=== PATIENT | female | born 1975 | race Two or more races ===

== ENCOUNTER 2018-02-07 19:21 | Emergency (ER) | payer MEDICAID ==
[~2018-02-07] VITALS: Ht 162.6 cm; Wt 52.6 kg
[2018-02-07] MEDS ORDERED: IV NORMAL SALINE 1000 ML BAG IV ONE (20:15)
[2018-02-07] MEDS ORDERED: MORPHINE SULFATE 2 MG/1 ML DISP.SYRIN IV ONE (20:15)
[2018-02-07] MEDS ORDERED: ONDANSETRON IV *ER 4 MG/2 ML VIAL IV ONE (20:15)
[2018-02-07] MEDS ORDERED: ONDANSETRON 4 MG/2 ML VIAL ONE (20:34)
[2018-02-07] MEDS ORDERED: MORPHINE SULFATE 4 MG/1 ML DISP.SYRIN ONE (20:34)
[2018-02-07 20:39] LABS: BASOPHILS % (AUTO) 0.9 % (0.0-2.0); EOSINOPHILS # (AUTO) 0.2 K/uL (0.0-0.7); EOSINOPHILS % (AUTO) 3.8 % (0.0-7.0); HEMATOCRIT 35.1 % (31.2-41.9); LYMPHOCYTES # (AUTO) 2.2 K/uL (20.0-40.0); LYMPHOCYTES % (AUTO) 39.1 % (20.5-51.5); MEAN CORPUSCULAR HEMOGLOBIN 31.7 uug (24.7-32.8); MEAN CORPUSCULAR HGB CONC 34 g/dL (32.3-35.6); MEAN CORPUSCULAR VOLUME 92.4 fL (75.5-95.3); MONOCYTES # (AUTO) 0.5 K/uL (2.0-10.0); MONOCYTES % (AUTO) 9.5 % (0.0-11.0); NEUTROPHILS # (AUTO) 2.6 K/uL (1.8-8.9); NEUTROPHILS % (AUTO) 46.7 % (38.5-71.5); PLATELET COUNT (AUTO) 288 K/uL (179-408); RED BLOOD CELL COUNT(AUTO) 3.79 MIL/uL (3.63-4.92); WHITE BLOOD COUNT (AUTO) 5.6 K/uL (3.8-11.8)
[2018-02-07 20:46] LABS: POTASSIUM 4.2 mmol/L (3.5-5.1)
[2018-02-07 20:47] LABS: CREATININE 0.9 mg/dL (0.6-1.3)
[2018-02-07 20:52] LABS: BILIRUBIN,TOTAL 0.2 mg/dL (0.2-1.0); TOTAL PROTEIN, SERUM 6.2 g/dL (6.4-8.2)
[2018-02-07 21:00] LABS: *URINE HCG, QUAL NEGATIVE (NEGATIVE)
--- NOTE | 2018-02-07 21:08 | NUR ---
SHOE STAINER AT BEDSIDE.
[2018-02-07] MEDS ORDERED: IV NORMAL SALINE 250 ML IV ONE (21:35)
[2018-02-07] MEDS ORDERED: NORMAL SALINE FLUSH 10 ML DISP.SYRIN ONE (21:35)
[2018-02-07] MEDS ORDERED: SWABABLE VALVE TRANSFER SET EA MC ONE (21:35)
[2018-02-07] MEDS ORDERED: IOHEXOL 350 100 ML INFUS..BTL ONE (21:35)
--- NOTE | 2018-02-07 22:09 | NUR ---
Pt went down to radiology dept for CT scan.
[2018-02-07] MEDS ORDERED: KETOROLAC TROMETHAMINE 30 MG INJ ONE (23:15)
[2018-02-07] MEDS ORDERED: KETOROLAC TROMETHAMINE 30 MG INJ IVP ONE (23:15)
--- NOTE | 2018-02-08 00:09 | NUR ---
Patient discharged to home in stable conditon. Written and verbal after care instructions given. Patient verbalizes understanding of instructions. Pt ambulated out of ER in steady gait accompanied by friend who will drive home. All belongings with pt. VSS. NAD noted.
--- NOTE | 2018-02-08 00:09 | NUR ---
IV removed. Catheter intact and site benign. Pressure and 4x4 gauze applied to site. No bleeding noted.
[2018-02-08 00:14] VITALS: BP 105/68
== END 2018-02-08 00:14 | disposition home or self-care (01) ==
LOC: ER 19:24
DX: G89.18 Other acute postprocedural pain (principal); N64.4 Mastodynia; Z88.2 Allergy status to sulfonamides; Z88.8 Allergy status to other drugs, medicaments and biological substances; Z91.041 Radiographic dye allergy status
CPT/HCPCS: 36415; 70030-TC; 71045; 71275; 76641-TC; 84703; 85025; 85730; 93005; A4663; J1885; J2270; J2405; J3490; J7030; J7050; Q9967

== ENCOUNTER 2018-02-12 14:43 | Inpatient (IN) | payer MEDICAID ==
[~2018-02-12] VITALS: Ht 162.6 cm; Wt 74.8 kg
[2018-02-12 15:22] LABS: BASOPHILS % (AUTO) 0.5 % (0.0-2.0); EOSINOPHILS # (AUTO) 0.2 K/uL (0.0-0.7); EOSINOPHILS % (AUTO) 2.2 % (0.0-7.0); HEMATOCRIT 30.5 % (31.2-41.9); HEMOGLOBIN 10.4 g/dL (10.9-14.3); LYMPHOCYTES # (AUTO) 1.5 K/uL (20.0-40.0); LYMPHOCYTES % (AUTO) 20.8 % (20.5-51.5); MEAN CORPUSCULAR HEMOGLOBIN 31.3 uug (24.7-32.8); MEAN CORPUSCULAR HGB CONC 34 g/dL (32.3-35.6); MEAN CORPUSCULAR VOLUME 91.5 fL (75.5-95.3); MONOCYTES # (AUTO) 0.5 K/uL (2.0-10.0); MONOCYTES % (AUTO) 7.2 % (0.0-11.0); NEUTROPHILS # (AUTO) 5.1 K/uL (1.8-8.9); NEUTROPHILS % (AUTO) 69.3 % (38.5-71.5); PLATELET COUNT (AUTO) 356 K/uL (179-408); RED BLOOD CELL COUNT(AUTO) 3.33 MIL/uL (3.63-4.92); WHITE BLOOD COUNT (AUTO) 7.4 K/uL (3.8-11.8)
[2018-02-12 15:32] LABS: CARBON DIOXIDE 26 mmol/L (21-32); CHLORIDE 106 mmol/L (98-107); CREATININE 0.8 mg/dL (0.6-1.3); GLUCOSE 76 mg/dL (74-106); POTASSIUM 3.8 mmol/L (3.5-5.1); UREA NITROGEN, BLOOD 11 mg/dL (7-18)
[2018-02-12 15:37] LABS: ALANINE AMINOTRANSFERASE 52 U/L (14-59); ALKALINE PHOSPHATASE 111 U/L (50-136); ASPARTATE AMINOTRANSFERASE 29 U/L (15-37); BILIRUBIN,DIRECT < 0.1 mg/dL (0.0-0.2); BILIRUBIN,TOTAL 0.1 mg/dL (0.2-1.0); TOTAL PROTEIN, SERUM 6.7 g/dL (6.4-8.2)
[2018-02-12] MEDS ORDERED: VANCOMYCIN IV 1,000 MG in IV DEXTROSE 5% 250 ML IV ONE (15:45)
--- NOTE | 2018-02-12 15:48 | NUR ---
LEFT A MESSAGE FOR DR. SIMON JEFFREY FOR SURGICAL CONSULT
[2018-02-12] MEDS ORDERED: VANCOMYCIN IV 200 ML ONE (15:53)
--- NOTE | 2018-02-12 16:13 | NUR ---
DR. SIMON JEFFREY TALKING TO DR. MI
[2018-02-12 16:30] LABS: *URINE HCG, QUAL NEGATIVE (NEGATIVE)
--- NOTE | 2018-02-12 16:40 | NUR ---
PT TRANSFERED TO FLOOR IN STABLE CONDITION
[2018-02-12 16:59] VITALS: BP 98/53
[2018-02-12] MEDS ORDERED: ACETAMINOPHEN 325 MG TABLET PO PRN (17:00)
[2018-02-12] MEDS ORDERED: ONDANSETRON 4 MG/2 ML VIAL IV PRN (17:00)
--- NOTE | 2018-02-12 17:22 | NUR ---
42 year old female received from er via [place] to room 223.pt is in stable condition.v/s are stable orient the pt to room and surroundings,call light with in reach
[2018-02-12] MEDS: IV NS 1000 ML 1,000 ML IV PRN (17:30)
[2018-02-12] MEDS: HYDROCODONE/APAP 10-325 MG TABLET PO PRN (18:01)
--- NOTE | 2018-02-12 18:28 | NUR ---
Clinical pharmacy note-Vancomycin dosing per pharmacy Subjective; To start Vancomycin dosing on this patient for suspected infection(possible sepsis). Patient had breast augmentation 2 weeks ago but came to ER due to bilateral breast swelling with severe pain. Objective: BUN 11 Scr 0.8 WBC 7.4 Temp 100.3 Ht 162.56cm Wt 74.843kg Assessment/Plan: Patient had Vancomycin 1 gram in ER today at 1558, will continue Vancomycin 1gram iv every 12hrs(second dose tomorrow at 0400) and draw trough by 4th dose(not ordered yet) for expected trough around 15. Will monitor renal function to adjust the dose if needed. Will follow daily.
--- NOTE | 2018-02-12 19:34 | NUR ---
Pt observed to be sitting up in bed, alert and oriented x 3. No s/s of acute distress noted at this time. Safe environment implemented. Call light within reach.
[2018-02-12] MEDS: ENOXAPARIN SODIUM 40 MG/0.4 ML DISP.SYRIN SQ SCH (20:32)
[2018-02-12 20:33] VITALS: BP 94/54
[2018-02-13] MEDS: HYDROCODONE/APAP 10-325 MG TABLET PO PRN ×2 (03:37→15:54)
[2018-02-13] MEDS: VANCOMYCIN IV 1 G in PREMIXED 0 EACH IV SCH ×2 (03:37→15:42)
--- NOTE | 2018-02-13 03:50 | NUR ---
Pt complaining of pain on upper chest around bilateral breast folds, describing the pain as tightness as she breaths in. Relaxation techniques , pain management and ice pack provided. 2L O2 via NC initiated to alleviate discomfort. Will continue to monitor.
[2018-02-13 04:29] VITALS: BP 103/66
--- NOTE | 2018-02-13 04:50 | NUR ---
Pt states that [place] 10 -325 is ineffective and pain remains to be at a 10/10. MD telephone interviewer notified and no new orders given.
[2018-02-13 05:42] LABS: BASOPHILS % (AUTO) 0.5 % (0.0-2.0); EOSINOPHILS # (AUTO) 0.2 K/uL (0.0-0.7); EOSINOPHILS % (AUTO) 3.4 % (0.0-7.0); HEMATOCRIT 28.3 % (31.2-41.9); HEMOGLOBIN 9.6 g/dL (10.9-14.3); LYMPHOCYTES # (AUTO) 1.3 K/uL (20.0-40.0); LYMPHOCYTES % (AUTO) 24.9 % (20.5-51.5); MEAN CORPUSCULAR HEMOGLOBIN 30.7 uug (24.7-32.8); MEAN CORPUSCULAR HGB CONC 34 g/dL (32.3-35.6); MEAN CORPUSCULAR VOLUME 90.5 fL (75.5-95.3); MONOCYTES # (AUTO) 0.4 K/uL (2.0-10.0); MONOCYTES % (AUTO) 7.7 % (0.0-11.0); NEUTROPHILS # (AUTO) 3.4 K/uL (1.8-8.9); NEUTROPHILS % (AUTO) 63.5 % (38.5-71.5); PLATELET COUNT (AUTO) 319 K/uL (179-408); RED BLOOD CELL COUNT(AUTO) 3.13 MIL/uL (3.63-4.92); WHITE BLOOD COUNT (AUTO) 5.3 K/uL (3.8-11.8)
[2018-02-13 05:57] LABS: CREATININE 0.8 mg/dL (0.6-1.3); MAGNESIUM 1.7 mg/dL (1.8-2.4); PHOSPHOROUS 4.2 mg/dL (2.5-4.9); POTASSIUM 3.5 mmol/L (3.5-5.1)
--- NOTE | 2018-02-13 06:37 | NUR ---
At this time, pt is resting in bed and in no distress. Pt no longer crying from excruciating pain. Safe environment implemented. Call light within reach.
[2018-02-13] MEDS: IV NS 1000 ML 1,000 ML IV PRN ×2 (06:39→17:41)
--- NOTE | 2018-02-13 09:07 | NUR ---
Clinical pharmacy note-Vancomycin dosing per pharmacy Subjective; To continue Vancomycin dosing on this 42 yo female patient for cellulitis Patient had breast augmentation 2 weeks ago in [place] but came to ER due to bilateral breast swelling with severe pain. Objective: BUN 10 Scr 0.8 WBC 5.3 Temp 98.2 Ht 162.56cm Wt 74.843kg Assessment/Plan: Will continue same dose of Vancomycin 1gram IVPB every 12hrs for today. 3rd dose today at 1600) and draw trough by 4th dose (ordered for 02/14 at 0330- RN has been informed to hold 0400am dose if vanco trough level is above 20 mcg/ml. Pharmacy shall review the level in am & adjust the dose if needed. Will follow daily.
[2018-02-13] MEDS ORDERED: MAGNESIUM SULFATE/D5W 100 ML IV SCH (09:30)
[2018-02-13] MEDS: HYDROCODONE/APAP 5-325MG TABLET PO PRN ×2 (10:02→11:05)
--- NOTE | 2018-02-13 10:13 | NUR ---
At this time, pt is resting in bed and in no distress. Safe environment implemented. Call light within reach.
[2018-02-13 11:24] VITALS: BP 101/61
[2018-02-13 15:15] VITALS: BP 90/40
[2018-02-13 19:00] VITALS: BP 93/54
--- NOTE | 2018-02-13 19:20 | NUR ---
RECEIVED PATIENT LYING IN BED. SEVERAL FAMILY MEMBER PRESENT. PATIENT AOX4. IN NO ACUTE DISTRESS. ON O2 AT 3LPM VIA NC. O2 SAT AT 100%. PT COMPLAIN OF PAIN ON CHEST AND ABDOMINAL AREA. WAS SEEN BY Pranay WILLIAMSON AND WILL ORDER NEW PAIN MEDICATION. IV SITE ON LEFT FOREARM INTACT AND PATENT. IVF INFUSING. NEEDS ATTENDED TO AND MET. SAFETY MEASURE INITIATED AND CALL [facility] WITHIN REACH.
[2018-02-13] MEDS ORDERED: MORPHINE SULFATE 2 MG/1 ML DISP.SYRIN IM PRN (20:30)
[2018-02-13] MEDS: CEFEPIME HCL 1 G in IV DEXTROSE 5% 50 ML IV SCH (20:35)
[2018-02-13] MEDS: MORPHINE SULFATE 4 MG/1 ML DISP.SYRIN IM PRN (20:37)
[2018-02-13] MEDS: ENOXAPARIN SODIUM 40 MG/0.4 ML DISP.SYRIN SQ SCH (20:38)
[2018-02-14] MEDS: MORPHINE SULFATE 4 MG/1 ML DISP.SYRIN IM PRN ×2 (02:12→06:40)
[2018-02-14] MEDS: TEMAZEPAM 15 MG CAPSULE PO PRN ×2 (03:30→23:32)
--- NOTE | 2018-02-14 03:30 | NUR ---
PATIENT COMPLAINED OF PAIN ON HER BREAST, STATED MORPHINE DID NOT HELP MUCH. NOTED SITTING AT THE SIDE OF THE BED. INSTRUCTED TO LAY DOWN IN BED TO PREVENT FROM BREAST FROM PULLING DOWN WHICH CAN BE CAUSING MORE PAIN. PATIENT LAYED DOWN. ICE COMPRESS PROVIDED TO BOTH BREAST AREA. PATIENT REQUESTED SLEEPING PILL, INFORMED CHARGE NURSE AND GIVEN.
[2018-02-14 04:00] VITALS: BP 102/55
[2018-02-14] MEDS: IV NS 1000 ML 1,000 ML IV PRN ×2 (04:46→20:50)
--- NOTE | 2018-02-14 04:55 | NUR ---
STILL AWAITING FOR VANCO TROUGH RESULT. CALL LAB X2 SPOKE TO JANET, TO FOLLOW UP RESULT AND STATES STILL RUNNING TEST AT THIS TIME. INSTRUCTED JANET TO CALL THIS NURSE ONCE RESULT IS IN.
[2018-02-14] MEDS: VANCOMYCIN IV 1 G in PREMIXED 0 EACH IV SCH (04:59)
--- NOTE | 2018-02-14 04:59 | NUR ---
VANCO TROUGH RESULT OBTAINED =7.5. VANCO IV GIVEN PER ODER.
--- NOTE | 2018-02-14 06:18 | NUR ---
AOX4. IN NO ACUTE DISTRESS. ON O2 AT 3LPM VIA NC. O2 SAT AT 100%. MORPHINE GIVEN FOR COMPLAIN OF PAIN ON CHEST/BREAST AREA. ICE COMPRESS ALSO PROVIDED TO BREAST AREA. NO REDNESS NOTED. INCISION SITE APPEARS TO BE INTACT. IV SITE ON LEFT FOREARM REMAINS INTACT AND PATENT. IVF INFUSING. NO ADVERSE EFFECT NOTED FROM IV ABX. NEEDS ATTENDED TO AND MET. SAFETY MEASURE MAINTAINED AND CALL [facility] WITHIN REACH.
[2018-02-14] MEDS: HYDROMORPHONE 1 MG/1 ML DISP.SYRIN IV PRN ×2 (07:46→14:09)
[2018-02-14] MEDS: CEFEPIME HCL 1 G in IV DEXTROSE 5% 50 ML IV SCH ×2 (08:35→20:49)
[2018-02-14] MEDS: HYDROCODONE/APAP 5-325MG TABLET PO PRN (11:03)
--- NOTE | 2018-02-14 11:09 | NUR ---
Clinical pharmacy note-Vancomycin dosing per pharmacy Subjective; To continue Vancomycin dosing on this 42 yo female patient for cellulitis Patient had breast augmentation 2 weeks ago in [place] but came to ER due to bilateral breast swelling with severe pain. Objective: BUN 10 (02/13) Scr 0.8 (02/13) WBC 5.3 (02/13) Temp 98.9 Ht 162.56cm Wt 74.843kg Trough today at 0330: 7.5 Assessment/Plan: Based on trough, rescheduled vanco regimen to 1250mg q9hr for new estimated trough of 14.9, first dose today at 1300. Trough ordered before 4th scheduled dose, due tomorrow at 1530. Will check trough tomrorow and adjust as needed. Will follow
[2018-02-14 11:24] VITALS: BP 97/62
[2018-02-14] MEDS: VANCOMYCIN IV 1,250 MG in IV DEXTROSE 5% 500 ML IV SCH ×2 (13:48→21:32)
[2018-02-14 15:08] VITALS: BP 87/51
--- NOTE | 2018-02-14 18:32 | NUR ---
Patient has had intermittent severe pain throughout the day. Has been cooperative with care, no distress noted at this time. Patient has experienced asymptomatic episodes of hypotension. Currently patient is in bed, bed in low position, side rails up x2.
[2018-02-14] MEDS: KETOROLAC TROMETHAMINE 15 MG INJ IVP PRN (18:58)
[2018-02-14 20:00] VITALS: BP 96/44
--- NOTE | 2018-02-14 20:00 | NUR ---
Pt observed to be sitting up in bed comfortably with no s/s of acute distress, denies pain at this time. Several friends by bedside, pt AAO x 3 and made aware of plan of care. Safe environment implemented. Call light within reach.
[2018-02-14] MEDS: LACTOBACILLUS RHAMNOSUS GG 1 EACH CAPSULE PO SCH (20:49)
[2018-02-14] MEDS: ENOXAPARIN SODIUM 40 MG/0.4 ML DISP.SYRIN SQ SCH (20:50)
[2018-02-15] MEDS: KETOROLAC TROMETHAMINE 15 MG INJ IVP PRN (03:32)
[2018-02-15 04:16] VITALS: BP 95/50
--- NOTE | 2018-02-15 05:37 | NUR ---
Pain management provided as ordered. Ice pack applied to bilateral breasts. Pt educated on incentive spirometer and encouraged to use 10 times every hour. Pt ambulated around the unit with a total of 7 laps. All needs attended to. Safe environment implemented. Call light within reach.
[2018-02-15] MEDS: VANCOMYCIN IV 1,250 MG in IV DEXTROSE 5% 500 ML IV SCH (06:21)
[2018-02-15 06:28] LABS: BASOPHILS % (AUTO) 0.4 % (0.0-2.0); EOSINOPHILS # (AUTO) 0.1 K/uL (0.0-0.7); EOSINOPHILS % (AUTO) 1.6 % (0.0-7.0); HEMATOCRIT 28.1 % (31.2-41.9); HEMOGLOBIN 9.7 g/dL (10.9-14.3); LYMPHOCYTES # (AUTO) 1.4 K/uL (20.0-40.0); MEAN CORPUSCULAR HEMOGLOBIN 30.8 uug (24.7-32.8); MEAN CORPUSCULAR HGB CONC 35 g/dL (32.3-35.6); MEAN CORPUSCULAR VOLUME 89.3 fL (75.5-95.3); MONOCYTES # (AUTO) 0.5 K/uL (2.0-10.0); MONOCYTES % (AUTO) 7.5 % (0.0-11.0); NEUTROPHILS # (AUTO) 5.2 K/uL (1.8-8.9); NEUTROPHILS % (AUTO) 71.5 % (38.5-71.5); PLATELET COUNT (AUTO) 353 K/uL (179-408); RED BLOOD CELL COUNT(AUTO) 3.15 MIL/uL (3.63-4.92); WHITE BLOOD COUNT (AUTO) 7.2 K/uL (3.8-11.8)
[2018-02-15 06:48] LABS: CREATININE 0.8 mg/dL (0.6-1.3); POTASSIUM 3.7 mmol/L (3.5-5.1)
--- NOTE | 2018-02-15 07:30 | NUR ---
Received patient from night warehouse selector nurse, patient in bed awake, no distress noted at this time, bed in low position, side rails up x2. bed alarm on.
[2018-02-15] MEDS: LACTOBACILLUS RHAMNOSUS GG 1 EACH CAPSULE PO SCH (08:23)
[2018-02-15] MEDS: CEFEPIME HCL 1 G in IV DEXTROSE 5% 50 ML IV SCH (08:43)
[2018-02-15 11:41] VITALS: BP 99/60
--- NOTE | 2018-02-15 12:40 | NUR ---
Patient was given discharge instructions, prescription and belongings reconciled. Patient was escorted to vehicle by friends and declined to use a wheel chair for discharge. No distress noted at discharge, all questions, answered. IV removed, and ID Band cut off.
== END 2018-02-15 12:40 | disposition home or self-care (01) | DRG 813 ==
LOC: ER 14:43 → MED 16:27
PROVIDERS: ADMIT Nurse Practitioner Acute Care; ATTEND Nurse Practitioner Acute Care
DX: L76.34 Postprocedural seroma of skin and subcutaneous tissue following other procedure (principal); E44.1 Mild protein-calorie malnutrition; E83.42 Hypomagnesemia; E66.3 Overweight; Z68.28 Body mass index [BMI] 28.0-28.9, adult; N64.4 Mastodynia; D64.9 Anemia, unspecified; Z98.82 Breast implant status; Y83.8 Other surgical procedures as the cause of abnormal reaction of the patient, or of later complication, without mention of misadventure at the time of the procedure; Y81.8 Miscellaneous general- and plastic-surgery devices associated with adverse incidents, not elsewhere classified; Y92.009 Unspecified place in unspecified non-institutional (private) residence as the place of occurrence of the external cause; E88.09 Other disorders of plasma-protein metabolism, not elsewhere classified; Z88.2 Allergy status to sulfonamides
CPT/HCPCS: 36415; 71046; 76641-TC; 83605; 83735; 84100; 84703; 85025; 85730; 86850; 86900; 86901; 87040; 94640; A4663; J0692; J1170; J1650; J1885; J2270; J3370; J3475; J7030; J7060

== ENCOUNTER 2018-03-03 20:19 | Inpatient (IN) | payer MEDICAID ==
[~2018-03-03] VITALS: Ht 162.6 cm; Wt 65.8 kg
[2018-03-03] MEDS ORDERED: MORPHINE SULFATE 2 MG/1 ML DISP.SYRIN IV ONE (21:45)
[2018-03-03] MEDS ORDERED: VANCOMYCIN IV 1,000 MG in IV DEXTROSE 5% 250 ML IV ONE (21:45)
[2018-03-03] MEDS ORDERED: PIPERACILLIN SODIUM/TAZOBACTAM 3.375 G in IV DEXTROSE 5% 50 ML IV ONE (21:45)
[2018-03-03] MEDS ORDERED: ONDANSETRON 4 MG/2 ML VIAL IV ONE (21:45)
[2018-03-03] MEDS ORDERED: KETOROLAC TROMETHAMINE 30 MG INJ IVP ONE (21:45)
[2018-03-03] MEDS ORDERED: PIPERACILLIN/TAZOBACTAM/D5W 50 ML IV ONE (21:54)
[2018-03-03] MEDS ORDERED: KETOROLAC TROMETHAMINE 30 MG INJ ONE (21:54)
[2018-03-03] MEDS ORDERED: MORPHINE SULFATE 4 MG/1 ML DISP.SYRIN ONE (21:54)
[2018-03-03] MEDS ORDERED: ONDANSETRON 4 MG/2 ML VIAL ONE (21:54)
[2018-03-03] MEDS ORDERED: VANCOMYCIN IV 200 ML ONE (22:36)
[2018-03-03 23:21] LABS: CREATININE 0.7 mg/dL (0.6-1.3); POTASSIUM 3.5 mmol/L (3.5-5.1)
[2018-03-03 23:23] LABS: BASOPHILS # (AUTO) 0.1 K/uL (0.0-8.0); BASOPHILS % (AUTO) 1.1 % (0.0-2.0); EOSINOPHILS # (AUTO) 0.3 K/uL (0.0-0.7); EOSINOPHILS % (AUTO) 6.4 % (0.0-7.0); HEMATOCRIT 32.8 % (31.2-41.9); HEMOGLOBIN 11.3 g/dL (10.9-14.3); LYMPHOCYTES # (AUTO) 2.1 K/uL (20.0-40.0); LYMPHOCYTES % (AUTO) 40.1 % (20.5-51.5); MEAN CORPUSCULAR HEMOGLOBIN 30.6 uug (24.7-32.8); MEAN CORPUSCULAR HGB CONC 35 g/dL (32.3-35.6); MEAN CORPUSCULAR VOLUME 88.9 fL (75.5-95.3); MONOCYTES # (AUTO) 0.5 K/uL (2.0-10.0); MONOCYTES % (AUTO) 9.5 % (0.0-11.0); NEUTROPHILS # (AUTO) 2.3 K/uL (1.8-8.9); NEUTROPHILS % (AUTO) 42.9 % (38.5-71.5); PLATELET COUNT (AUTO) 379 K/uL (179-408); RED BLOOD CELL COUNT(AUTO) 3.68 MIL/uL (3.63-4.92); WHITE BLOOD COUNT (AUTO) 5.3 K/uL (3.8-11.8)
[2018-03-03 23:27] LABS: BILIRUBIN,TOTAL 0.2 mg/dL (0.2-1.0); TOTAL PROTEIN, SERUM 6.8 g/dL (6.4-8.2)
--- NOTE | 2018-03-04 00:19 | NUR ---
Paged [employer] for panel call.
--- NOTE | 2018-03-04 00:39 | NUR ---
Tay Gardiner (pt's friend) phone number [phone]
--- NOTE | 2018-03-04 00:53 | NUR ---
Pt. admitted to Med/Surg , under care of Dr. Bacon. Diagnosis: Breast Infection Belongs List completed. MRSA swab done. Report given to Maureen POLLOCK.
[2018-03-04] MEDS ORDERED: ALBUTEROL SULFATE 2.5 MG/3 ML NEBU NEB PRN (01:45)
[2018-03-04] MEDS ORDERED: MORPHINE SULFATE 4 MG/1 ML DISP.SYRIN IV PRN (01:45)
[2018-03-04] MEDS ORDERED: MAGNESIUM HYDROXIDE 30 ML LIQUID UDC PO PRN (01:45)
[2018-03-04] MEDS ORDERED: ZOLPIDEM 5 MG TABLET PO PRN (01:45)
[2018-03-04] MEDS ORDERED: ACETAMINOPHEN 325 MG TABLET PO PRN (01:45)
[2018-03-04] MEDS ORDERED: Z GUARD REMEDY PASTE 57 GM TUBE TOP PRN (01:45)
[2018-03-04] MEDS ORDERED: ONDANSETRON 4 MG/2 ML VIAL IV PRN (01:45)
[2018-03-04] MEDS ORDERED: HYDROCODONE/APAP 5-325MG TABLET PO PRN (01:45)
[2018-03-04] MEDS ORDERED: CEFTRIAXONE 1 G in IV DEXTROSE 5% 50 ML IV SCH (01:45)
[2018-03-04 02:00] VITALS: BP 87/45
--- NOTE | 2018-03-04 02:00 | NUR ---
RECEIVED PATIENT VIA GURNEY FROM ER. PATIENT IS A/O X4. BP 87/45. PATIENT IS AWAKE AND ALERT. ASYMPTOMATIC. PATIENT STATED SHE HAS A HISTORY OF HAVING "LOW BLOOD PRESSURE READINGS." REDNESS NOTED TO RIGHT BREAST. ALL OTHER VSS. NO RESP. DISTRESS NOTED. NO C/O PAIN AT THIS TIME. CALL LIGHT IN REACH. ALL NEEDS ATTENDED. WILL CONTINUE TO MONITOR.
[2018-03-04] MEDS ORDERED: CEFTRIAXONE 1 G VIAL ONE (02:30)
[2018-03-04] MEDS: IV NS 1000 ML 1,000 ML IV PRN ×2 (02:32→20:28)
[2018-03-04 04:30] VITALS: BP 90/49
--- NOTE | 2018-03-04 06:54 | NUR ---
PATIENT ASLEEP. IVF INFUSING WELL. ON TELE SR/SB. CALL LIGHT IN REACH. ALL NEEDS ATTENDED.
[2018-03-04 08:00] VITALS: BP 86/48
--- NOTE | 2018-03-04 08:00 | NUR ---
AWAKE COOPERATE WELL NO ACUTE DISTRESS OR PAIN RT BREAST STILL SWELLING AND REDNESS ,CONTINUE IVF AND ANTIBIOTIC VS TAKEN BP LOW BUT STABLE RESTING IN BED WITH CALL LIGHT IN REACH
[2018-03-04 10:38] LABS: *URINE HCG, QUAL NEGATIVE (NEGATIVE)
--- NOTE | 2018-03-04 11:00 | NUR ---
DR CLIFFORD ,T SEEN PATIENT AND ORDER IN CHART [facility] CARDIOGRAM AT BEDSIDE TOLPROCEDURE WELL FAMILY AT BEDSIDE
[2018-03-04] MEDS ORDERED: VANCOMYCIN IV 1 G in PREMIXED 0 EACH IV ONE (11:30)
[2018-03-04 11:47] VITALS: BP 98/53
--- NOTE | 2018-03-04 11:55 | NUR ---
CLINICAL PHARMACY NOTE:VANCOMYCIN DOSING Request for vancomycin dosing on 42 y/o female 5'4" 145lbs for breast infection Temp 98.3 BUN 11 Scr 0.7 WBC 5.3 also on ceftriaxone. Received vancomycin 1gm in ER on 03/03 at 2100. Continue vancomycin 1 gm IVPB q12h estimated trough 14. Will order trough level prior to 4th dose. Will continue to monitor
[2018-03-04] MEDS: VANCOMYCIN IV 1 G in PREMIXED 0 EACH IV SCH ×2 (12:01→23:49)
[2018-03-04] MEDS: KETOROLAC TROMETHAMINE 15 MG INJ IVP PRN ×2 (12:02→20:29)
[2018-03-04 16:06] VITALS: BP 91/51
--- NOTE | 2018-03-04 17:20 | NUR ---
RESTING WELL IN BED NO ACUTE DISTRESS ,PAIN UNDER CONTROL SAFETY MEASURE PROVIDED CALL LIGHT IN REACH AND CONTINUE IVF ORDER
[2018-03-04 19:00] VITALS: BP 95/47
[2018-03-05 04:00] VITALS: BP 95/55
[2018-03-05] MEDS: CEFTRIAXONE 1 G in IV DEXTROSE 5% 50 ML IV SCH (04:08)
[2018-03-05] MEDS: MORPHINE SULFATE 4 MG/1 ML DISP.SYRIN IV PRN ×2 (04:12→14:55)
[2018-03-05 06:30] LABS: BASOPHILS # (AUTO) 0.1 K/uL (0.0-8.0); EOSINOPHILS # (AUTO) 0.4 K/uL (0.0-0.7); EOSINOPHILS % (AUTO) 6.2 % (0.0-7.0); HEMATOCRIT 33.6 % (31.2-41.9); HEMOGLOBIN 11.4 g/dL (10.9-14.3); LYMPHOCYTES # (AUTO) 1.8 K/uL (20.0-40.0); LYMPHOCYTES % (AUTO) 29.1 % (20.5-51.5); MEAN CORPUSCULAR HEMOGLOBIN 30.4 uug (24.7-32.8); MEAN CORPUSCULAR HGB CONC 34 g/dL (32.3-35.6); MEAN CORPUSCULAR VOLUME 89.7 fL (75.5-95.3); MONOCYTES # (AUTO) 0.5 K/uL (2.0-10.0); MONOCYTES % (AUTO) 7.4 % (0.0-11.0); NEUTROPHILS # (AUTO) 3.5 K/uL (1.8-8.9); NEUTROPHILS % (AUTO) 56.3 % (38.5-71.5); PLATELET COUNT (AUTO) 356 K/uL (179-408); RED BLOOD CELL COUNT(AUTO) 3.74 MIL/uL (3.63-4.92); WHITE BLOOD COUNT (AUTO) 6.2 K/uL (3.8-11.8)
[2018-03-05 06:54] LABS: CREATININE 0.8 mg/dL (0.6-1.3); MAGNESIUM 1.9 mg/dL (1.8-2.4); POTASSIUM 3.8 mmol/L (3.5-5.1)
--- NOTE | 2018-03-05 08:00 | NUR ---
SLEPT QUIET THIS AM NO ACUTE DISTRESS ,CONTINUE IVF ,PAIN UNDER CONTROL STILL SWELLING ON CAMRYN BREAST RT MORE THAN LEFT CALL LIGHT WITHIN REACH
[2018-03-05 11:30] VITALS: BP 90/44
[2018-03-05] MEDS: VANCOMYCIN IV 1 G in PREMIXED 0 EACH IV SCH (11:36)
[2018-03-05] MEDS: IV NS 1000 ML 1,000 ML IV PRN ×2 (11:39→23:01)
--- NOTE | 2018-03-05 13:38 | NUR ---
CLINICAL PHARMACY NOTE:VANCOMYCIN DOSING Continue vancomycin dosing on 42 y/o female 5'4" 145lbs for breast infection Temp 98.1 BUN 11 Scr 0.8 WBC 6.2 also on ceftriaxone. Continue vancomycin 1 gm IVPB q12h estimated trough 14. Will order trough level prior to 4th dose(ordered for [facility] at 2330). Will continue to monitor
--- NOTE | 2018-03-05 14:00 | NUR ---
FAMILY AT BEDSIDE NO SOB STATE PAIN MEDICATION HELP TO RELIEF PAIN
[2018-03-05 15:26] VITALS: BP 98/48
--- NOTE | 2018-03-05 17:00 | NUR ---
STABLE CONDITION NO ACUTE DISTRESS ,COMFORT AND SAFETY MEASURE PROVIDED CALL [facility] IN REACH
[2018-03-05 19:47] VITALS: BP 104/48
--- NOTE | 2018-03-05 20:29 | NUR ---
SOMEONE CLAIMING TO BE A MALE FAMILY MEMBER CALLING STATING PATIENT IS WANTING TO BE DISCHARGED TONIGHT. I WENT TO PATIENT ROOM TO TALK WITH HER. SHE WAS ON THE PHONE AND SHE NEVER INDICATED SHE WANTED TO GO HOME TONIGHT. SHE KEPT TELLING ME SHE WANTS THE BREAST IMPLANTS TAKEN OUT. I WENT OVER THE PLAN OF CARE WITH HER AND HOSPITALIST PLAN. KEPT REFERRING HER TO THE ORIGINAL DOCTOR WHO DID THE IMPLANTS. SHE SAID SHE SAW THAT SURGEON WHO SAID SHE WAS "OK" BUT DID NOT INDICATE HIS NAME. PATIENT IS VISIBLY UPSET. I TOLD HER WE WILL CONTINUE TO TREAT HER WITH ANTIBIOTICS PER PLAN OF CARE. THE SWELLING AND REDNESS OF THE RIGHT BREAST HAS GONE DOWN SINCE ADMISSION. SHE IS INSISTING WE REMOVE THE IMPLANTS BUT I TOLD HER ITS NOT POSSIBLE TO DO THAT TONIGHT AND SHE WILL NEED CLEARANCE AND AUTHORIZATION FOR SURGERY. ONCE AGAIN, I REFERRED HER TO THE ORIGINAL SURGEON THAT PLACED HER IMPLANTS.
[2018-03-05] MEDS: KETOROLAC TROMETHAMINE 15 MG INJ IVP PRN (23:01)
[2018-03-06] MEDS: VANCOMYCIN IV 1 G in PREMIXED 0 EACH IV SCH (00:33)
[2018-03-06] MEDS: CEFTRIAXONE 1 G in IV DEXTROSE 5% 50 ML IV SCH (03:35)
[2018-03-06 04:54] VITALS: BP 131/44
[2018-03-06] MEDS ORDERED: diphenhydrAMINE 25 MG/10 ML UDC NG PRN (08:45)
[2018-03-06] MEDS ORDERED: diphenhydrAMINE 25 MG/10 ML UDC PO PRN (09:15)
[2018-03-06] MEDS ORDERED: diphenhydrAMINE 25 MG CAP PO PRN (09:30)
[2018-03-06] MEDS ORDERED: VANCOMYCIN IV 1,250 MG in IV DEXTROSE 5% 500 ML IV SCH (10:00)
--- NOTE | 2018-03-06 10:26 | NUR ---
CLINICAL PHARMACY NOTE:VANCOMYCIN DOSING Continue vancomycin dosing on 42 y/o female for Presumed post-op breast augmentation infection O: Temp 97.9 BUN 11 (03/05) Scr 0.8 (03/05) WBC 6.2 (03/05) Vanco trough level: 8.9 HT 162.5 cm WT 65.7 kg Plan: Since vanco trough level is subtherapeutic, will change vancomycin dose to 1250mg IVPB q10hr for estimated trough 15.6 mcgml at [facility] state. 1st dose is due today at 1000. Will order trough level prior to 4th dose (not yet ordered). Will continue to monitor
[2018-03-06 11:54] VITALS: BP 106/71
[2018-03-06] MEDS ORDERED: CEFTRIAXONE 1 G VIAL IV ONE (15:00)
[2018-03-06] MEDS ORDERED: CEFTRIAXONE 1 G in IV DEXTROSE 5% 50 ML IV ONE (15:15)
[2018-03-06] MEDS: MORPHINE SULFATE 4 MG/1 ML DISP.SYRIN IV PRN (15:16)
[2018-03-06 16:12] VITALS: BP 106/60
[2018-03-06] MEDS ORDERED: CLIN300C11 PO (17:48)
[2018-03-06] MEDS ORDERED: DOXY100C41 PO (17:48)
--- NOTE | 2018-03-06 18:00 | NUR ---
D/C ORDERS RECEIVED NOTED AND CARRIED OUT,D/C INSTRUCTION AND EDUCATION GIVEN TO THE PT,D/C AIXA PER MD ORDERS,PT LEFT THE FACILITY VIA PRIVATE CAR IN STABLE CONDITION
[2018-03-06] MEDS ORDERED: LACTOBACILLUS RHAMNOSUS GG 1 EACH CAPSULE PO SCH (21:00)
== END 2018-03-06 18:00 | disposition home or self-care (01) | DRG 721 ==
LOC: ER 20:22 → MED 03-04 00:30 → TELE 03-04 05:40 → MED 03-04 16:55
PROVIDERS: ADMIT Internal Medicine; ATTEND Nurse Practitioner Acute Care
DX: T85.79XA Infection and inflammatory reaction due to other internal prosthetic devices, implants and grafts, initial encounter (principal); E83.51 Hypocalcemia; N61.0 Mastitis without abscess; Z98.82 Breast implant status; Z82.49 Family history of ischemic heart disease and other diseases of the circulatory system; G89.29 Other chronic pain
CPT/HCPCS: 36415; 70030-TC; 83735; 84100; 84703; 85025; 93307; A4663; J0696; J1885; J2270; J2405; J2543; J3370; J7030; J7060; Q0163

== ENCOUNTER 2018-07-19 05:06 | Emergency (ER) | payer SELFPAY ==
[~2018-07-19] VITALS: Ht 162.6 cm; Wt 61.2 kg
[~2018-07-19 05:06] MED LIST: CLIN300C11 PO; DOXY100C41 PO
--- NOTE | 2018-07-19 05:25 | NUR ---
Pt. ambulated into ED w/ c/o 2cm scalp laceration above L eyebrow d/t slip and fall into [facility], c/o SPIVEY 7/10 in L frontal region of head at injury site, denies visual defecits, extremity strength equal bilat. and symmetrical denies LOC, denies dizziness, states she last received tetanus shot in January 2018, male director sales training at bedside,
--- NOTE | 2018-07-19 05:55 | NUR ---
Patient discharged to home in stable conditon. Written and verbal after care instructions given. Patient verbalizes understanding of instructions. Pt. d/c per MD orders, d/c papers signed, all belongings w/ pt., ID band removed, ambulated off unit w/ steady gait, left in private vehicle driven by boyfriend, NAD
== END 2018-07-19 05:57 | disposition home or self-care (01) ==
LOC: ER 05:06
DX: S01.112A Laceration without foreign body of left eyelid and periocular area, initial encounter (principal); Z88.2 Allergy status to sulfonamides; Z88.8 Allergy status to other drugs, medicaments and biological substances; Z91.041 Radiographic dye allergy status; Z79.2 Long term (current) use of antibiotics; W01.198A Fall on same level from slipping, tripping and stumbling with subsequent striking against other object, initial encounter; Y93.89 Activity, other specified; Y92.89 Other specified places as the place of occurrence of the external cause; Y99.8 Other external cause status
CPT/HCPCS: 12013; 99283; J3490; A4217; A4663